=== PATIENT | male | born 1955 | race Caucasian/White ===

== ENCOUNTER → 2017-08-12 | Outpatient (REF) | payer OTHER ==
[2017-08-12 20:12] LABS: APPEARANCE, URINE CLEAR (CLEAR); BACTERIA, URINE AUTO NEGATIVE (NEGATIVE); BILIRUBIN, URINE AUTO NEGATIVE (NEGATIVE); BLOOD, URINE BLOOD NEGATIVE (NEGATIVE); COLOR, URINE YELLOW (YELLOW); GLUCOSE, URINE (UA) AUTO NEGATIVE (NEGATIVE); KETONE, URINE AUTO NEGATIVE (NEGATIVE); LEUKOCYTE ESTERASE, URINE AUTO NEGATIVE (NEGATIVE); NITRITE, URINE AUTO NEGATIVE (NEGATIVE); PROTEIN, URINE AUTO NEGATIVE (NEGATIVE); RBC, URINE AUTO 0 /HPF (0-3); SPECIFIC GRAVITY URINE AUTO 1.009 (1.002-1.035); SQUAMOUS EPITHELIAL CELL UR AU 0 /HPF (0-6); UROBILINOGEN, URINE AUTO 0.2 mg/dL (0.0-2.0); WBC, URINE AUTO 0 /HPF (0-3)
== END ==
LOC: M SMT 17:12
DX: N40.0 Benign prostatic hyperplasia without lower urinary tract symptoms (principal)

== ENCOUNTER 2018-07-06 05:38 | Day surgery (SDC) | payer BC, OTHER ==
[~2018-07-06] VITALS: Ht 170.2 cm; Wt 122.0 kg
[~2018-07-06 05:38] MED LIST: ALRE0.5S OU; ASPI81TA85 PO; ATOR1TAB19 PO; CELE1CAP9 PO; CETI10TA PO; FLOM0.4C39 PO; FLUTISP; HYDR12CA PO; POLYSOL OS
[2018-07-06] MEDS ORDERED: LR 1,000 ML IV ONE (06:00)
[2018-07-06] MEDS ORDERED: fentaNYL 100 MCG/2 ML INJECTION (J3010) As Ordered ONE (06:34)
[2018-07-06] MEDS ORDERED: MIDAZOLAM INJ 2 MG/2 ML VIAL (J2250) As Ordered ONE ×2 (06:34→08:22)
[2018-07-06] MEDS ORDERED: ceFAZolin 1GM INJ (J0690 PER 500MG) As Ordered ONE (07:13)
[2018-07-06] MEDS ORDERED: MIDAZOLAM INJ 2 MG/2 ML VIAL (J2250) IV ONE (08:00)
[2018-07-06] MEDS ORDERED: fentaNYL 100 MCG/2 ML INJECTION (J3010) IV ONE (08:00)
[2018-07-06] MEDS ORDERED: PROPOFOL 200 MG/20 ML VIAL As Ordered ONE (08:22)
[2018-07-06] MEDS ORDERED: ROCURONIUM BROMIDE 50 MG/5 ML VIAL As Ordered ONE ×2 (08:22→08:23)
[2018-07-06] MEDS ORDERED: fentaNYL 250 MCG/5 ML INJECTION (J3010) As Ordered ONE (08:22)
[2018-07-06] MEDS ORDERED: LIDOCAINE 2% INJ 100 MG/5 ML SDV (FOR ANES.) As Ordered ONE (08:22)
[2018-07-06] MEDS ORDERED: METOCLOPRAMIDE INJ 10MG/2ML VIAL (J2765) As Ordered ONE (08:23)
[2018-07-06] MEDS ORDERED: dexameTHASONE 4 MG/ML 1ML VIAL (J1100) As Ordered ONE (08:23)
[2018-07-06] MEDS ORDERED: NEOSTIGMINE 10 MG/10 ML VIAL (J2710) As Ordered ONE (08:23)
[2018-07-06] MEDS ORDERED: GLYCOPYRROLATE INJ 0.2 MG/ML 2 ML VIAL As Ordered ONE (08:23)
[2018-07-06] MEDS ORDERED: ONDANSETRON 4MG/2ML VIAL (J2405) As Ordered ONE (08:23)
[2018-07-06] MEDS ORDERED: KETOROLAC 60 MG/2 ML VIAL (J1885) As Ordered ONE (08:23)
[2018-07-06] MEDS ORDERED: ePHEDrine SULFATE 25 MG/5 ML(5MG/ML) SYRINGE As Ordered ONE (08:34)
[2018-07-06] MEDS ORDERED: fentaNYL 100 MCG/2 ML INJECTION (J3010) IV PRN (12:15)
[2018-07-06] MEDS ORDERED: oxyCODONE 5MG TAB PO PRN ×2 (12:15)
[2018-07-06] MEDS ORDERED: LR 1,000 ML IV SCH (12:15)
[2018-07-06] MEDS ORDERED: HYDROMORPHONE HCL 0.5 MG/ 0.5 ML SYRINGE (J1170 PER 1) IV PRN (12:15)
--- NOTE | 2018-07-06 12:19 | REP ---
Right ankle: Four views limited study intra op. History: Right leg Achilles tendonitis. 24 seconds of fluoroscopy time is reported. Findings: A sequence of four last image hold fluoroscopically obtained spot radiographs of the right heel document Achilles tendon surgery. Electronically Signed by Torres Jackson MD 07/06/2018 06:52 P
[2018-07-06 12:25] VITALS: BP 122/56
[2018-07-06] MEDS ORDERED: ACETAMINOPHEN 500 MG TAB PO SCH (22:00)
[2018-07-06] MEDS ORDERED: IBUPROFEN 600 MG TAB PO SCH (22:00)
[2018-07-07] MEDS ORDERED: ASPIRIN 81 MG ENTERIC TAB PO SCH (09:00)
--- NOTE | 2018-07-12 15:57 | RO ---
DATE OF PROCEDURE: 07/06/2018 PREPROCEDURE DIAGNOSIS: Right insertional Achilles tendinosis. POSTPROCEDURE DIAGNOSIS: Right insertional Achilles tendinosis. PROCEDURE: 1. Right Achilles debridement and excision of Liz's deformity. 2. Right Achilles secondary repair. 3. Right flexor halluces longus tendon transfer to the calcaneal tuberosity. SURGEON: Margie Lira MD LPN RN: KIRK Parrish ANESTHESIA: General endotracheal anesthesia with popliteal nerve block. ESTIMATED BLOOD LOSS: 25 mL. COMPLICATIONS: None. CONDITION: Stable to recovery. IMPLANTS: Arthrex Achilles SpeedBridge and single 6.25 mm x 15 mm PEEK Bio-Tenodesis screw. INDICATIONS: Valentino Treviño is a pleasant 63-year-old male who has long standing insertional Achilles tendinosis who has failed extensive nonoperative modalities including NSAIDs, physical therapy and bracing. The risks and benefits of surgery were discussed with the patient in detail and patient elected to proceed with surgical management. Informed consent was obtained in the office. The patient understands the risks include but are not limited to infection, damage to nerves or the blood vessels, tendon rupture, need for additional procedure, continued pain and stiffness, blood clot including deep venous thrombosis (DVT), or pulmonary embolism (PE). DESCRIPTION OF PROCEDURE: The patient was met in the preoperative holding area where the right lower extremity was marked as the correct operative site. He was then taken to the post anesthesia care unit (PACU) where she underwent a popliteal nerve block by the anesthesia team. Following this, the patient was taken to the operating room where he underwent general anesthesia without difficulty. A Lawton catheter was placed and it was removed at the end of the case. The patient was placed into the prone position and all the bony prominences were well padded in addition the patient's neck and shoulders being well supported. A sterile tourniquet was placed on the right upper thigh. The right lower extremity underwent a Chlorhexidine scrub. It was then prepped and draped in a normal sterile fashion. The patient received antibiotics within 60 minutes prior to incision. An official time-out was held where the correct patient, operative procedure and operative site were confirmed. Appropriate images were displayed in the operating room. An Esmarch was used to exsanguinate the leg and the tourniquet was inflated to 250 mmHg. An incision was marked out straight midline over the Achilles tendon. It was incised with a #15 blade. Careful exposure to the level of the peritenon was performed. Care was taken to ensure that the sural nerve was not adherent to the Achilles tendon either posteriorly or laterally. Following this, the peritenon was excised. It was tagged for later closure. The tendon was exposed circumferentially. A midline incision was then made from about 3 cm proximal to the level of the insertion down to the distal aspect of the insertion itself. The tendon was raised off the posterior calcaneal tuberosity. There was found to be significant tendinosis throughout the insertional region and a fairly large area of calcification in the medial aspect of the tendon. Tendon was debrided and the calcification was removed using a series of fresh #15 blades. It was necessary to debride over 50% of the Achilles tendon for adequate debridement and there was a small defect in the medial aspect of the tendon where the calcification was previously so decision was made to proceed with the flexor halluces longus transfer to the calcaneus. The retrocalcaneal bursal tissue was debrided and the superior calcaneal tuberosity was exposed. The posterior fascia of the flexor hallucis longus (FHL) muscle was easily identified. This was excised, exposing the FHL muscle. Using long Metzenbaum scissors, the muscle was then followed down to the level of the tendon with care to dissect only on the lateral border of the tendon to avoid the medial nerve vascular structures. When a significant portion of the tendon was exposed, the tendon was excised in the medial to lateral direction with the foot and toe in plantar flexion to maximize tendon length. After excision, there was found to be an adequate portion of the tendon for transfer. Of note, the tendon initially measured 8 mm and had some areas of mild tendinosis. This was debrided down to approximately 6 mm. A Whip Stitch was then performed using a #2 FiberWire with care to tubulize the distal portion of FHL tendon. At this point, attention was turned back to debridement of the calcaneal tuberosity. There was a medium sized enthesophyte present on the posterior aspect of the tuberosity. This was excised using a small osteotome. Next, the Liz's bony resection was performed using a #38 blade saw. The level of resection was confirmed on the lateral C-Arm. The superior aspect of the calcaneus was smoothed down with a power rasp in both medial, lateral, superior and posterior directions. At this point, using a marker, the insertion point for the FHL and the anticipated position of the Achilles SpeedBridge was marked out. Beath pin was inserted anterior to the Achilles insertion aiming to the level of the midfoot following this ryan. Its trajectory was confirmed on a lateral C-Arm view. Following this, a 6.5 reamer was used over the pin to about a 25 to 30 mm depth. The tendon was then passed through the tunnel. Appropriate tension was set with the foot in neutral dorsiflexion and a 6.25 x 15 mm Bio-Tenodesis PEEK screw was selected and placed in the tunnel. This had satisfactory bite and the tendon had good tension following screw placement. Next, attention was turned to the Achilles SpeedBridge for reattachment of the Achilles tendon insertion. Four holes were drilled proximally and distally with care to avoid the FHL transfer. The FiberTapes were placed proximally and then brought through each medial and lateral limb of the tendon. The limbs were then crossed in the standard fashion and secured distally with two SwiveLocks. This was performed without complication. One #2 FiberWire on the medial aspect of the limb was used to further reinforce the medial tendon insertion as this was the side that had the small defect from the area of calcification. The tendon was further secured with #0 Vicryl. Appropriate tension of the Achilles tendon was maintained. The midline split was closed with #0 Vicryl in a running fashion. The peritenon was closed using #3-0 Vicryl in an interrupted fashion. Skin was closed using #3-0 nylon. Of note, tourniquet was let down prior to skin and peritenon closure and hemostasis was maintained. Following skin closure, a sterile dressing was applied and a splint was placed in slight plantar flexion. Patient was then transferred to the hospital stretcher and extubated without any issue. Counts were correct at the end of the case. There were no complications. PLAN: The patient will be nonweightbearing in the right lower extremity for 6 weeks. I will see him back in one week for a wound check and splint change. He will be on aspirin 81 mg by mouth twice a day for DVT prophylaxis.
== END 2018-07-06 13:46 | disposition home or self-care (01) ==
LOC: M SDC 05:38
PROVIDERS: ATTEND Orthopaedic Surgery
DX: M76.61 Achilles tendinitis, right leg (principal); M92.61 Juvenile osteochondrosis of tarsus, right ankle; I10 Essential (primary) hypertension; J30.9 Allergic rhinitis, unspecified; G47.33 Obstructive sleep apnea (adult) (pediatric); R73.01 Impaired fasting glucose; M54.2 Cervicalgia; N40.0 Benign prostatic hyperplasia without lower urinary tract symptoms; M12.9 Arthropathy, unspecified; R06.83 Snoring; Z79.899 Other long term (current) drug therapy; Z79.82 Long term (current) use of aspirin; Z87.442 Personal history of urinary calculi
CPT/HCPCS: 27654; 27691; 28118; 64445; 73610; 88304; 97116; 97530; C1713; J0690; J1100; J1885; J2250; J2405; J2710; J2765; J3010

== ENCOUNTER → 2020-02-02 | Outpatient (CLI) | payer BC, OTHER ==
[~2020-02-02] MED LIST changes: -ASPI81TA85 PO; +ASPI81TA86 PO; +LISI10TA4 PO; +PERC5TAB12 PO; +XARE10TA PO
== END ==
LOC: M LABSMTC 10:16
PROVIDERS: ATTEND Anesthesiology
DX: Z11.59 Encounter for screening for other viral diseases (principal)

== ENCOUNTER → 2020-02-02 | Outpatient (CLI) | payer MEDICARE, BC, OTHER ==
[2020-02-02 18:01] LABS: HEMATOCRIT 42.7 % (42.0-52.0); HEMOGLOBIN 13.9 g/dl (13.5-17.5); MEAN CORPUSCULAR HEMOGLOBIN 30.2 pg (27.0-33.0); MEAN CORPUSCULAR HGB CONC 32.6 g/dl (32.0-36.5); MEAN CORPUSCULAR VOLUME 92.6 fl (80.0-96.0); PLATELET COUNT, AUTOMATED 247 10^3/uL (150-450); RED BLOOD COUNT 4.61 10^6/uL (4.30-6.10); WHITE BLOOD COUNT 8.8 10^3/uL (4.0-10.0)
[2020-02-02 18:21] LABS: ALBUMIN 3.9 GM/DL (3.2-5.2); ALT/SGPT 24 U/L (12-78); BILIRUBIN,TOTAL 0.4 MG/DL (0.2-1.0); BLOOD UREA NITROGEN 15 MG/DL (7-18); CALCIUM LEVEL 9.4 MG/DL (8.8-10.2); CARBON DIOXIDE LEVEL 29 MEQ/L (21-32); CHLORIDE LEVEL 103 MEQ/L (98-107); CREATININE FOR GFR 0.89 MG/DL (0.70-1.30); GLOMERULAR FILTRATION RATE > 60.0 (>49); GLUCOSE, FASTING 91 MG/DL (70-100); POTASSIUM SERUM 4.3 MEQ/L (3.5-5.1); SODIUM LEVEL 138 MEQ/L (136-145); TOTAL PROTEIN 7.3 GM/DL (6.4-8.2)
[2020-02-02 18:22] LABS: PROTHROMBIN TIME 13.4 SECONDS (11.8-14.0)
[2020-02-02 18:31] LABS: ERYTHROCYTE SEDIMENTATION RATE 12 mm/hr (0-20)
--- NOTE | 2020-02-15 14:41 | ECGEPIP ---
[facility] Test Date: 2020-02-02 Pat Name: SERENE VELASQUEZ Department: Room: - Gender: Male [employer] Hospitalist: RF : [id number] Requested By: Gayathri Morales Order Number: [id number] Reading MD: Lorenzo Mendoza Measurements Intervals [place] Rate: 49 P: 4 NV: 154 QRS: 50 QRSD: 106 T: 51 QT: 455 QTc: 412 Interpretive Statements SINUS BRADYCARDIA WITH SINUS ARRHYTHMIA OTHERWISE NS SEE SCANNED DOWNTIME REPORT
--- NOTE | 2020-02-27 12:42 | REP ---
CHEST X-RAY: 02/02/20 CLINICAL: Preoperative assessment TECHNIQUE: PA and lateral COMPARISON: 09/24/2015 FINDINGS: Mediastinum and cardiac silhouette are within normal limits and stable. Lung sadler are clear. No consolidation, effusion or pneumothorax. Skeletal structures are intact. IMPRESSION: No acute cardiopulmonary process of focal consolidation. MTDD
== END ==
LOC: M LAB 16:01
PROVIDERS: ATTEND Family Medicine
DX: Z01.818 Encounter for other preprocedural examination (principal); M17.12 Unilateral primary osteoarthritis, left knee; Z20.828 Contact with and (suspected) exposure to other viral communicable diseases
CPT/HCPCS: 36415; 71046; 80053; 85027; 85610; 85652; 93005; C9803; U0003

== ENCOUNTER 2020-02-07 07:33 | Inpatient (IN) | payer MEDICARE, BC, OTHER ==
[~2020-02-07] VITALS: Ht 170.2 cm; Wt 114.9 kg
[2020-02-07] VITALS (7 sets, daily range): BP systolic 102–139; BP diastolic 61–75
[~2020-02-07 07:33] MED LIST changes: -LISI10TA4 PO; +LR 1,000 ML IV ONE; -PERC5TAB12 PO; -XARE10TA PO; +ceFAZolin SOD 1 GM in D5W MINI-BAG PLUS 50 ML IV ONE; +ceFAZolin SOD 2 GM in IV 1 EA IV ONE
[2020-02-07] MEDS ORDERED: LISI10TA4 PO (07:48)
[2020-02-07] MEDS ORDERED: ceFAZolin 2 GM/D5W 50 ML IV BAG (J0690 PER 500MG) As Ordered ONE (08:01)
[2020-02-07] MEDS ORDERED: ceFAZolin 1GM VIAL (J0690 PER 500MG) As Ordered ONE ×2 (08:01→09:02)
[2020-02-07] MEDS ORDERED: propofoL 200 MG/20 ML VIAL As Ordered ONE (08:57)
[2020-02-07] MEDS ORDERED: LIDOCAINE 2% 100MG/5ML SDV (FOR ANES.) As Ordered ONE (08:57)
[2020-02-07] MEDS ORDERED: fentaNYL 100 MCG/2 ML INJECTION (J3010) As Ordered ONE (08:59)
[2020-02-07] MEDS ORDERED: MIDAZOLAM INJ 2MG/2ML VIAL (J2250 PER 1MG) As Ordered ONE ×2 (08:59→10:36)
[2020-02-07] MEDS ORDERED: TRANEXAMIC ACID 100 MG/ML 10ML VIAL As Ordered ONE (09:01)
[2020-02-07] MEDS ORDERED: BUPIVACAINE LIPOSOME/PF 1.3% 20ML VIAL (13.3MG/ML)(EXPAREL)(C9290 PER1MG) As Ordered ONE (09:02)
[2020-02-07] MEDS ORDERED: EPINEPHrine INJ 1 MG/ML 1ML AMP As Ordered ONE (09:02)
[2020-02-07] MEDS: fentaNYL 100 MCG/2 ML INJECTION (J3010) IV PRN ×2 (09:18→09:20)
[2020-02-07] MEDS: MIDAZOLAM INJ 2MG/2ML VIAL (J2250 PER 1MG) IV PRN ×2 (09:18→09:19)
[2020-02-07] MEDS ORDERED: ROPIvacaine 0.5% 30ML INJECTION (J2795 PER 1MG) ONE (10:29)
[2020-02-07] MEDS ORDERED: dexameTHASONE 10MG/1ML VIAL PRES.FREE (J1100 PER 1MG) ONE (10:29)
[2020-02-07] MEDS ORDERED: LIDOCAINE 1% MDV 20ML VIAL ONE (10:29)
[2020-02-07] MEDS ORDERED: LR 1,000 ML IV SCH ×2 (12:30→12:45)
[2020-02-07] MEDS ORDERED: fentaNYL 100 MCG/2 ML INJECTION (J3010) IV PRN (12:30)
[2020-02-07] MEDS ORDERED: oxyCODONE 5MG TAB PO PRN (12:30)
[2020-02-07] MEDS ORDERED: ONDANSETRON 4MG/2ML VIAL IV PRN ×2 (12:30→12:45)
[2020-02-07] MEDS ORDERED: MORPHINE 4 MG/ML 1ML VIAL/SYRINGE (J2270) IV PRN (12:45)
[2020-02-07] MEDS ORDERED: MORPHINE 2 MG/ML 1ML VIAL (J2270) IV PRN (12:45)
[2020-02-07] MEDS ORDERED: ACETAMINOPHEN TAB 650MG DOSE (2X325MG) PO PRN (12:45)
--- NOTE | 2020-02-07 12:47 | REPVR ---
PROCEDURE INFORMATION: Exam: XR Left Knee Exam date and time: 02/07/2020 12:36 PM Age: 64 years old Clinical indication: Screening exam; Post op; Prior surgery; Surgery date: Post-operative (0-2 days); Additional info: Post op in pacu TECHNIQUE: Imaging protocol: XR Left knee. Views: 1 or 2 views. COMPARISON: No relevant prior studies available. FINDINGS: Bones/joints: Left TKA. Hardware appears intact. Superior patellar enthesophyte. No acute fracture. No dislocation. Soft tissues: Postsurgical changes in the soft tissues. Ventral skin rowena. IMPRESSION: Intact left knee arthroplasty. Electronically signed by: Margarita Garrido On 02/07/2020 12:47:13 PM
[2020-02-07] MEDS: PERCOCET 5MG/325MG TAB PO PRN ×3 (14:34→22:32)
--- NOTE | 2020-02-07 14:43 | CR.PDOC ---
General Date of Consultation: Feb 07, 2020 Consultation Chief complaint: Who presented to [facility] for an elective left knee arthroplasty Hospitalist service consulted for medical management History of present illness: Patient is a 64 year old male with a PMHx of HTN, DLP, NATHALIE on CPAP, Allergic rhinitis, BPH who presented to the [facility] for an elective total left knee arthroplasty with orthopedic surgery. Patient has received outpatient medical optimization from their PCP, Gayathri Walton. Patient is seen post-operatively and he denies any CP, SOB, palpitations, cough, abdominal pain, N/V, constipation, diarrhea or urinary discomfort. He denies any fevers / chills recently. He denies any changes in his weight, but does reports an intentional weight loss of 20 lbs / 4 months. He was advised by orthopedic surgery to loss weight prior to the surgery. Past Medical History: HTN, DLP, NATHALIE on CPAP, Allergic rhinitis, BPH Past Surgical History: Kidney stones with cystoscopy / lithotripsy (03/2010) Skin cancer removal of R forearm (2011) Colonoscopy (12/2009) Tonsillectomy Vasectomy Diskectomy and fusion C5 to C7 (2016) Bilateral carpal tunnel release Achilles tendon repair 07/02 calcification (2017) Left knee arthroscopy (03/2019) Allergies: See below Medications: See below Family History: - Sister with uterine cancer Social History: - Denies the use of tobacco or illicit drugs; Social alcohol use - Denies recent travel or sick contacts - Lives with - Occupation; 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 [employer] Review of Systems: 10 point review of systems complete, all negative otherwise stated in HPI Physical exam: - Vitals: BP [112/57], HR [57], RR [18], Sat [95%RA], Temp [97.0F] - General: Lying in bed, No acute distress, Speaking in full sentences, AAOx3 - HEENT: NC, AT, PERRLA - CVS: RRR, +S1S2 - Lungs: Fair air entry bilaterally, No appreciable wheezing / rales / rhonchi - Abdomen: Soft, Non-distended, Non-tender - Extremities: No lower extremity edema, No calf tenderness - Neuro: No focal motor or sensory deficit - Skin: Left knee in dressing Assessment and Plan: Elective Total Left knee arthroplasty (POD#0) - Patient presented to [facility] for an elective procedure with orthopedic surgery - Medical optimization was completed as an outpatient by their PCP, Dr. Gayathri Walton - Pain control, anticoagulation and physical therapy at the direction of primary team HTN - c/w HCTZ with holding parameters - Lisinopril on hold until verified by pharmacy DLP - c/w Statin NATHALIE on CPAP - May use own CPAP device while inpatient Allergic rhinitis - c/w Cetirizine BPH - c/w Tamsulosin DVT prophylaxis - c/w full anticoagulation as per orthopedic team Vital Signs/I&O Vital Signs Date Time Temp Pulse Resp B/P (MAP) Pulse Ox O2 Delivery O2 Flow Rate FiO2 02/07/20 14:34 16 02/07/20 12:44 97 57 112/57 (75) 95 Room Air 02/07/20 10:12 2 Allergies Coded Allergies: No Known Allergies (Unverified , 02/07/20) Home Medications Scheduled Aspirin (Aspir 81) 81 Mg Tab, 81 MG PO DAILY, #30 (Reported) Atorvastatin Calcium (Atorvastatin Calcium) 10 Mg Tab, 10 MG PO DAILY, (Reported) Celecoxib (Celecoxib) 200 Mg Cap, 200 MG PO DAILY, (Reported) Cetirizine HCl (Cetirizine HCl) 10 Mg Tab, 10 MG PO DAILY, (Reported) Fluticasone Propionate (Fluticasone Propionate) 50 Mcg/Act Spr, 2 SPRAY NA DAILY, (Reported) Hydrochlorothiazide (Hydrochlorothiazide) 12.5 Mg Cap, 12.5 MG PO DAILY, (Reported) Lisinopril (Lisinopril) 10 Mg Tablet, 10 MG PO DAILY, (Reported) Loteprednol Etabonate (Alrex) 0.2 % Caro, 1 DROP OU DAILY, (Reported) Tamsulosin HCl (Flomax) 0.4 Mg Cap, 0.4 MG PO DAILY, (Reported) GRANT POWERS MD Feb 07, 2020 14:43
[2020-02-07] MEDS: CETIRIZINE (ZyrTEC) 10 MG TAB PO SCH (17:50)
[2020-02-07] MEDS: ceFAZolin SOD 2 GM in IV 1 EA IV SCH (18:39)
[2020-02-07] MEDS ORDERED: TAMSULOSIN 0.4 MG CAP PO SCH (21:00)
[2020-02-07] MEDS ORDERED: ATORVASTATIN 10 MG TAB PO SCH (21:00)
[2020-02-08 02:00] VITALS: BP 112/62
[2020-02-08] MEDS: ceFAZolin SOD 2 GM in IV 1 EA IV SCH (02:34)
[2020-02-08 06:00] VITALS: BP 111/61
[2020-02-08] MEDS ORDERED: XARE10TA PO (06:27)
[2020-02-08] MEDS ORDERED: PERC5TAB12 PO (06:27)
[2020-02-08 06:37] LABS: HEMATOCRIT 35.5 % (42.0-52.0); HEMOGLOBIN 12.1 g/dl (13.5-17.5); MEAN CORPUSCULAR HEMOGLOBIN 31.1 pg (27.0-33.0); MEAN CORPUSCULAR HGB CONC 34.1 g/dl (32.0-36.5); MEAN CORPUSCULAR VOLUME 91.3 fl (80.0-96.0); PLATELET COUNT, AUTOMATED 225 10^3/uL (150-450); RED BLOOD COUNT 3.89 10^6/uL (4.30-6.10); WHITE BLOOD COUNT 16.6 10^3/uL (4.0-10.0)
[2020-02-08] MEDS: PERCOCET 5MG/325MG TAB PO PRN (06:39)
[2020-02-08 07:12] LABS: BLOOD UREA NITROGEN 16 MG/DL (7-18); CALCIUM LEVEL 9.2 MG/DL (8.8-10.2); CARBON DIOXIDE LEVEL 26 MEQ/L (21-32); CHLORIDE LEVEL 102 MEQ/L (98-107); CREATININE FOR GFR 0.85 MG/DL (0.70-1.30); GLOMERULAR FILTRATION RATE > 60.0 (>49); GLUCOSE, FASTING 130 MG/DL (70-100); MAGNESIUM LEVEL 2.1 MG/DL (1.8-2.4); POTASSIUM SERUM 4.3 MEQ/L (3.5-5.1); SODIUM LEVEL 134 MEQ/L (136-145)
[2020-02-08] MEDS: CETIRIZINE (ZyrTEC) 10 MG TAB PO SCH (08:25)
[2020-02-08] MEDS ORDERED: hydroCHLOROthiazide 12.5 MG CAPSULE PO SCH (09:00)
[2020-02-08] MEDS ORDERED: MOM 30ML SUSPENSION UDC PO SCH (09:00)
[2020-02-08] MEDS ORDERED: FLUBLOK(EGG FREE)(QUAD)INFLUENZA VACC 0.5ML SYRINGE 18YRS & OLDER IM SCH (09:00)
[2020-02-08] MEDS ORDERED: MIRALAX *UNIT DOSE* 17GM PACKET PO SCH (09:00)
[2020-02-08] MEDS ORDERED: FLUTICASONE PROP 0.05% NASAL SPRAY 16 GM (FLONASE) SCH (09:00)
[2020-02-08 10:00] VITALS: BP 111/59
--- NOTE | 2020-02-08 14:40 | IPNPDOC ---
Text Note Date of Service The patient was seen on 02/08/20. NOTE Subjective: Patient is a 64 year old male with a PMHx of HTN, DLP, NATHALIE on CPAP, Allergic rhinitis, BPH who presented to the [facility] for an elective total left knee arthroplasty with orthopedic surgery. Patient has received outpatient medical optimization from their PCP, Gayathri Walton. Hospitalist service was consulted for medical management. Patient was seen and examined at the bedside. Currently he denies any N/V, abdominal pain, C/D, no urinary discomfort. Patient has been ambulating to the bathroom and will be working with physical therapy today. Objective: Vitals (See below) General: Lying in bed, appears comfortable, AAOx3 HEENT: NC, AT CVS: RRR, +S1S2 Lungs: Fair air entry b/l, -w/r/r Abdomen: Soft, ND, NT Extremities: - Edema, - Calf tenderness Assessment and plan: Elective Total Left knee arthroplasty (POD#1) - Patient presented to [facility] for an elective procedure with orthopedic surgery - Medical optimization was completed as an outpatient by their PCP, Dr. Gayathri Walton - Pain control, anticoagulation and physical therapy at the direction of primary team - Will be working with physical therapy today; anticipate DC later today HTN - c/w HCTZ with holding parameters - Lisinopril on hold today DLP - c/w Statin NATHALIE on CPAP - May use own CPAP device while inpatient Allergic rhinitis - c/w Cetirizine BPH - c/w Tamsulosin DVT prophylaxis - c/w full anticoagulation as per orthopedic team Disposition: - Anticipate DC within 24 hours VS,Josiane, I+O VS, Ethanbone, I+O Laboratory Tests 02/08/20 06:25 Vital Signs Date Time Temp Pulse Resp B/P (MAP) Pulse Ox O2 Delivery O2 Flow Rate FiO2 02/08/20 10:00 98.2 60 17 111/59 (76) 97 Room Air 02/07/20 10:12 2 I&O- Last 24 Hours up to 6 AM 02/08/20 06:00 Intake Total 4010 ml Output Total 625 ml Balance 3385 ml GRANT POWERS MD Feb 08, 2020 14:40
[2020-02-08] MEDS ORDERED: RIVAROXABAN 10 MG TAB (XARELTO) PO SCH (18:00)
--- NOTE | 2020-02-09 14:05 | IPN ---
DATE: 02/07/2020 SUBJECTIVE: Patient seen and examined. He wishes to go ahead with a left knee arthroplasty. He understands the nature of this, the risks of bleeding, infection, damage to nerves/vessels, persistent pain, wear, loosening, blood clots, medical problems, , among others. Pre-op clearance was obtained. VALENTINA
--- NOTE | 2020-02-22 16:42 | RO ---
DATE OF OPERATION: 02/07/2020 PREOPERATIVE DIAGNOSIS: Left knee osteoarthritis. POSTOPERATIVE DIAGNOSIS: Left knee osteoarthritis. PROCEDURE: Left total knee arthroplasty using an Attune rotating platform size 6 femur, size 7 tibial tray, cruciate retaining 10 polyethylene, 38 patella button. SURGEON: Zhang Long MD DENTAL TECH: KIRK Andersen ANESTHESIA: Spinal. ESTIMATED BLOOD LOSS: 50 ml COMPLICATIONS: None. INDICATIONS: 64-year-old has had gradually worsening left knee pain, wish to go ahead with the surgical treatment. He had severe arthritis. PROCEDURE: The patient was taken to the operating room, placed in supine position after spinal anesthesia was induced. The left lower extremity was prepped and draped in the usual sterile fashion. Time-out was performed. Tourniquet was inflated. A longitudinal incision was made over the anterior aspect of the knee. Sharp dissection was carried down through subcutaneous tissue. A medial parapatellar arthrotomy was performed per routine. Controlled hemostasis with the cautery. I everted the patella, flexed the knee up, removed some osteophytes, use the canal initiating reamer, followed by the intramedullary guide set at 5 degree valgus, 9 mm cut. This was pinned in place and a distal femoral cut was made protecting soft tissues. I then sized the femur initially to be a 7 and the drill holes were placed in the end of the femur and the external rotation positioned and the cutting block was secured. Remaining cuts were made. I then prepared the tibia with the posterior retractor being placed protecting the PCL and placed the tibia alignment guide and the appropriate amount of valgus and posterior slope, ended up cutting 4 off the low side which was 10 off the high side. This was an appropriate cut. The soft tissue balance seemed to be appropriate in extension. I then sized with the spacer blocks and determined that it was tight in flexion and appropriate in extension with a size 10, so I elected to downsize the femur. The size 6 cutting block was then re-secured to the femur, referencing off the anterior cut and the pinholes were placed in the same previous holes and the block was secured. The remaining cuts were made removing a little more bone posteriorly and off the posterior chamfer cuts. I then used the spacer block and found that a size 10 was excellent alignment and balance in flexion and extension. The sulcus cut was then prepared with the guide. The tibia was prepared with the drill and broach and the trial components were placed with the 10 polyethylene and excellent fit was noted of the components and excellent balance was noted in flexion and extension. Excellent alignment was noted. The patella was then freehand cut removing about 8 mm of bone. Sized to be a 38. The drill holes were placed in the patella. A trial was place and this tracked a little laterally, so I did do a lateral release at this point. This allowed the patella to track quite nicely. I made the drill holes in the end of the femur. The visual merchandising assistant prepared the bone cement in the modern technique on the back table. I irrigated copiously, placed the Exparel in the deep tissues and dried the surfaces, cemented on the components, removed all excess bone cement, had placed the polyethylene, brought the knee under extension, cemented on the patella, held it in place with a clamp, removing excess bone cement. I then copiously irrigated, placed a TXA in the deep tissues and then began closure with the deep layer with 1-Vicryl suture in interrupted fashion followed by running STRATAFIX. Once the cement was hardened, we removed the patella clamp and finished the closure. Deep irrigation was performed. Watertight closure was obtained. I put the knee through range of motion; the knee had excellent stability. There is no clicking or catching. I neglected to mention a step after we made the tibia cut that the soft tissue was removed from either side of the knee with a occupational therapy specialist on each side and some osteophytes posteriorly. I then irrigated the subcutaneous. Once the cement hardened, I deflated the tourniquet and closed with subcutaneous 2-0 Vicryl, the skin with rowena, the deep layer had been closed with running STRATAFIX after the 1-Vicryl. Sterile dressing was applied. He was taken to the recovery room stable condition. There were no known complications. The plan will be routine postop. The visual merchandising assistant was instrumental in holding retractors and assisting in mixing the bone cement and assisting in wound closure. VALENTINA
--- NOTE | 2020-02-27 08:44 | DSES ---
DATE OF ADMISSION: 02/07/2020. DATE OF DISCHARGE: 02/08/2020. ATTENDING PHYSICIAN: hZang Long M.D. ADMITTING DIAGNOSIS: Osteoarthritis left knee. OTHER DIAGNOSES: Hypertension, elevated lipids, sleep apnea, allergic rhinitis, benign prostatic hypertrophy. DISCHARGE DIAGNOSIS: Osteoarthritis left knee; status post left total knee arthroplasty. OPERATION PERFORMED: Left total knee arthroplasty. HISTORY: This is a 64-year-old male patient with progressively worsening left knee pain and stiffness. He failed to improve with conservative management. He was admitted for elective knee replacement on the left side. HOSPITAL COURSE: Patient was admitted on the day of surgery and underwent a left total knee arthroplasty, which was uneventful. He did well in the postoperative period and his hospital course was without complications. He was up with physical therapy per their protocol and his pain was controlled. On day of discharge, he was weightbearing as tolerated on his left lower extremity. He will use MARIUM stockings for 30 days postoperatively for DVT prophylaxis. He will also use Xarelto 10 mg per the protocol for DVT prophylaxis. He will resume his preoperative medications and diet. He will use oral pain medications for pain control. He was given instructions to include but not limited to wound monitoring and activity limitations. He will follow-up in our office in 10-14 days for surgical follow-up. Please refer to the medical record for further details. VALENTINA
== END 2020-02-08 12:00 | disposition home or self-care (01) | DRG 470 ==
LOC: M OR 07:33 → M MS5PR 13:05
PROVIDERS: ADMIT Orthopaedic Surgery; ATTEND Orthopaedic Surgery
PROC: 0SRW0J9 Replacement of Left Knee Joint, Tibial Surface with Synthetic Substitute, Cemented, Open Approach (ICD-10-PCS; principal; 2020-02-07 09:20)
DX: M17.12 Unilateral primary osteoarthritis, left knee (principal); I10 Essential (primary) hypertension; G47.33 Obstructive sleep apnea (adult) (pediatric); N40.0 Benign prostatic hyperplasia without lower urinary tract symptoms; Z79.899 Other long term (current) drug therapy; Z79.82 Long term (current) use of aspirin

== ENCOUNTER → 2020-08-19 | Outpatient (REF) | payer MEDICARE, BC, OTHER ==
[~2020-08-19] MED LIST changes: +LISI10TA22 PO; -LR 1,000 ML IV ONE; +PERC5TAB12 PO; +XARE10TA PO; -ceFAZolin SOD 1 GM in D5W MINI-BAG PLUS 50 ML IV ONE; -ceFAZolin SOD 2 GM in IV 1 EA IV ONE
[2020-08-19 18:36] LABS: APPEARANCE, URINE CLEAR (CLEAR); BACTERIA, URINE AUTO NEGATIVE (NEGATIVE); BILIRUBIN, URINE AUTO NEGATIVE (NEGATIVE); BLOOD, URINE BLOOD NEGATIVE (NEGATIVE); COLOR, URINE YELLOW (YELLOW); GLUCOSE, URINE (UA) AUTO NEGATIVE (NEGATIVE); KETONE, URINE AUTO NEGATIVE (NEGATIVE); LEUKOCYTE ESTERASE, URINE AUTO NEGATIVE (NEGATIVE); MUCUS, URINE SMALL (NEGATIVE); NITRITE, URINE AUTO NEGATIVE (NEGATIVE); PROTEIN, URINE AUTO NEGATIVE (NEGATIVE); RBC, URINE AUTO 1 /HPF (0-3); SPECIFIC GRAVITY URINE AUTO 1.015 (1.002-1.035); SQUAMOUS EPITHELIAL CELL UR AU 0 /HPF (0-6); UROBILINOGEN, URINE AUTO 0.2 mg/dL (0.0-2.0); WBC, URINE AUTO 0 /HPF (0-3)
== END ==
LOC: M SMT 17:08
PROVIDERS: ATTEND Nurse Practitioner Family
DX: N40.0 Benign prostatic hyperplasia without lower urinary tract symptoms (principal)
CPT/HCPCS: 51798; 81001; 87086; G0463

== ENCOUNTER → 2020-09-02 | Outpatient (CLI) | payer SELFPAY | LOC: M LABSMTC 09:29 | PROVIDERS: ATTEND Pediatrics | DX: Z11.52 Encounter for screening for COVID-19 (principal) ==

== ENCOUNTER → 2021-03-05 | Outpatient (CLI) | payer MEDICARE, BC, OTHER ==
--- NOTE | 2021-03-05 12:24 | REP ---
INDICATION: PUNCTURE WOUND LEFT HAND, SPRAIN OF LEFT WRIST COMPARISON: None. TECHNIQUE: AP, lateral, bilateral oblique views left hand. FINDINGS: The osseous structures and joint spaces are intact and normal. There is no evidence for acute fracture or dislocation. Surrounding soft tissues are unremarkable. No subcutaneous emphysema or radiodense foreign body. IMPRESSION: No subcutaneous emphysema or foreign body. No acute fracture or dislocation. <Electronically signed by Ricci Julian > 03/05/21 [id number]
--- NOTE | 2021-03-05 12:25 | REP ---
INDICATION: PUNCTURE WOUND LEFT HAND, SPRAIN OF LEFT WRIST COMPARISON: None. TECHNIQUE: AP, lateral, bilateral oblique views left wrist. FINDINGS: The carpal bones, surrounding osseous structures, soft tissues, and joint spaces are normal. There is no evidence for acute fracture or dislocation. No subcutaneous emphysema or radiodense foreign body. IMPRESSION: Normal wrist series. No subcutaneous emphysema or foreign body. No acute fracture. <Electronically signed by Ricci Julian > 03/05/21 [id number]
== END ==
LOC: M WUC 11:56
PROVIDERS: ATTEND Physician Assistant
DX: S61.432A Puncture wound without foreign body of left hand, initial encounter (principal); S63.512A Sprain of carpal joint of left wrist, initial encounter; W18.30XA Fall on same level, unspecified, initial encounter; Y92.009 Unspecified place in unspecified non-institutional (private) residence as the place of occurrence of the external cause

== ENCOUNTER → 2021-06-26 | Outpatient (CLI) | payer MEDICARE, BC, OTHER ==
[~2021-06-26] MED LIST changes: +ACET650T61 PO; +ALEV220T22 PO; +ECOT81TA5 PO; +OXYB10TA23 PO
== END ==
LOC: M LABSMTC 10:20
PROVIDERS: ATTEND Anesthesiology
DX: Z01.818 Encounter for other preprocedural examination (principal); Z11.52 Encounter for screening for COVID-19

== ENCOUNTER 2021-07-01 07:11 | Day surgery (SDC) | payer MEDICARE, BC, OTHER ==
[~2021-07-01] VITALS: Ht 170.2 cm; Wt 118.4 kg
[~2021-07-01 07:11] MED LIST changes: +NS 1,000 ML IV ONE
[2021-07-01] MEDS ORDERED: propofoL 200 MG/20 ML VIAL As Ordered ONE (07:23)
[2021-07-01] MEDS ORDERED: LIDOCAINE 2% 100MG/5ML SDV (FOR ANES.) As Ordered ONE (07:23)
[2021-07-01 09:07] VITALS: BP 124/80
[2021-07-01] MEDS ORDERED: OXYMETAZOLINE 0.05% NASAL SPRAY (AFRIN) As Ordered ONE (13:54)
== END 2021-07-01 09:08 | disposition home or self-care (01) ==
LOC: M OPP 07:11
PROVIDERS: ATTEND Internal Medicine Gastroenterology
DX: Z12.11 Encounter for screening for malignant neoplasm of colon (principal); K57.30 Diverticulosis of large intestine without perforation or abscess without bleeding; K64.8 Other hemorrhoids; Z79.899 Other long term (current) drug therapy

== ENCOUNTER → 2022-10-20 | Outpatient (CLI) | payer MEDICARE, BC, OTHER ==
[~2022-10-20] MED LIST changes: +FLUT50SP17; -FLUTISP; -NS 1,000 ML IV ONE
== END ==
LOC: M RAD 07:06
PROVIDERS: ATTEND Physician Assistant
DX: Z87.442 Personal history of urinary calculi (principal)

== ENCOUNTER 2023-08-30 14:33 | Emergency (ER) | payer MEDICARE, BC, OTHER ==
[~2023-08-30] VITALS: Ht 170.2 cm; Wt 89.5 kg
[~2023-08-30 14:33] MED LIST changes: +CELE0.09 PO; -CELE1CAP9 PO; -FLUT50SP17; +FLUTISP
[2023-08-30 15:29] LABS: BASO % 0.2 % (0.0-1.0); EOS % 0.1 % (0.0-3.0); HEMATOCRIT 36.3 % (42.0-52.0); HEMOGLOBIN 12.5 g/dl (13.5-17.5); LYMPH # 0.4 10^3/uL (1.5-5.0); LYMPH % 3.4 % (24.0-44.0); MEAN CORPUSCULAR HGB CONC 34.4 g/dl (32.0-36.5); MEAN CORPUSCULAR VOLUME 90.1 fl (80.0-96.0); MONO # 0.4 10^3/uL (0.0-0.8); MONO % 3.9 % (2.0-8.0); NEUTROPHILS # 10.2 10^3/uL (1.5-8.5); PLATELET COUNT, AUTOMATED 244 10^3/uL (150-450); RED BLOOD COUNT 4.03 10^6/uL (4.30-6.10); WHITE BLOOD COUNT 11.1 10^3/uL (4.0-10.0)
[2023-08-30 15:51] LABS: LIPASE 37 U/L (12-53)
[2023-08-30 15:53] LABS: ALBUMIN 3.2 G/DL (3.2-5.2); ALKALINE PHOSPHATASE 616 U/L (46-116); ALT/SGPT 233 U/L (7.0-40); AST/SGOT 206 U/L (<34); BILIRUBIN,DIRECT 1.7 MG/DL (<0.4); BILIRUBIN,TOTAL 2.3 MG/DL (0.3-1.2); BLOOD UREA NITROGEN 22 MG/DL (9-23); CARBON DIOXIDE LEVEL 28 MMOL/L (20-31); CHLORIDE LEVEL 103 MMOL/L (98-107); CPK CREATINE PHOSPHOKINASE 57 U/L (46-171); CREATININE FOR GFR 0.74 MG/DL (0.70-1.30); GLOMERULAR FILTRATION RATE > 60.0 (>49); GLUCOSE, FASTING 157 MG/DL (74-106); POTASSIUM SERUM 3.6 MMOL/L (3.5-5.1); SODIUM LEVEL 135 MMOL/L (136-145)
[2023-08-30 15:54] LABS: CK-MB VALUE MASS < 1.0 NG/ML (<3.6); MB/CK RELATIVE INDEX 1.75 (< OR =4)
[2023-08-30] MEDS: NS 1,000 ML IV SCH (16:06)
[2023-08-30] MEDS ORDERED: ISOVUE-370 76% 100ML VIAL As Ordered ONE (17:37)
[2023-08-30 17:46] LABS: CK-MB VALUE MASS < 1.0 NG/ML (<3.6)
[2023-08-30 17:47] LABS: CPK CREATINE PHOSPHOKINASE 46 U/L (46-171); MB/CK RELATIVE INDEX 2.17 (< OR =4)
[2023-08-30] MEDS: ACETAMINOPHEN TAB 650MG DOSE (2X325MG) PO ONE (18:08)
[2023-08-30] MEDS: NS 1,000 ML IV ONE (19:38)
[2023-08-30] MEDS: PIPERACILLIN/TAZOBACTAM SOD 4.5 GM in D5W MINI-BAG PLUS 50 ML IV ONE (19:38)
[2023-08-30 20:24] VITALS: TEMP 99
[2023-08-30] MEDS: NS 1,690 ML in IV 1 EA IV ONE (20:40)
[2023-08-30 21:26] VITALS: BP 103/55; O2SAT 97
== END 2023-08-30 21:35 | disposition short-term general hospital (02) ==
LOC: M ED 15:54
DX: K81.9 Cholecystitis, unspecified (principal); A41.9 Sepsis, unspecified organism; E80.6 Other disorders of bilirubin metabolism; I10 Essential (primary) hypertension; E78.5 Hyperlipidemia, unspecified; G47.33 Obstructive sleep apnea (adult) (pediatric); N20.0 Calculus of kidney
CPT/HCPCS: 71275; 74177; 76705; 80048; 80076; 81001; 82550; 82553; 83605; 83690; 84484; 85025; 87040; 87486; 87581; 87633; 87798; 93005; 93041; 94760; 96361; 96365; 96366; 99291; J2543; Q9967

== ENCOUNTER 2023-09-20 02:03 | Inpatient (IN) | payer MEDICARE, BC ==
[~2023-09-20] VITALS: Ht 170.2 cm; Wt 92.0 kg
[2023-09-20 02:34] LABS: APPEARANCE, URINE CLEAR (CLEAR); BACTERIA, URINE AUTO NEGATIVE (NEGATIVE); BILIRUBIN, URINE AUTO NEGATIVE (NEGATIVE); BLOOD, URINE BLOOD NEGATIVE (NEGATIVE); COLOR, URINE YELLOW (YELLOW); GLUCOSE, URINE (UA) AUTO NEGATIVE (NEGATIVE); KETONE, URINE AUTO NEGATIVE (NEGATIVE); LEUKOCYTE ESTERASE, URINE AUTO NEGATIVE (NEGATIVE); MUCUS, URINE SMALL (NEGATIVE); NITRITE, URINE AUTO NEGATIVE (NEGATIVE); PROTEIN, URINE AUTO NEGATIVE (NEGATIVE); RBC, URINE AUTO 0 /HPF (0-3); SPECIFIC GRAVITY URINE AUTO 1.012 (1.002-1.035); SQUAMOUS EPITHELIAL CELL UR AU 0 /HPF (0-6); UROBILINOGEN, URINE AUTO 0.2 mg/dL (0.0-2.0); WBC, URINE AUTO 0 /HPF (0-3)
[2023-09-20 02:44] LABS: BASO # 0.1 10^3/uL (0.0-0.2); BASO % 0.5 % (0.0-1.0); EOS # 0.1 10^3/uL (0.0-0.5); HEMATOCRIT 38.7 % (42.0-52.0); HEMOGLOBIN 13.1 g/dl (13.5-17.5); LYMPH # 0.9 10^3/uL (1.5-5.0); LYMPH % 7.3 % (24.0-44.0); MEAN CORPUSCULAR HEMOGLOBIN 31.3 pg (27.0-33.0); MEAN CORPUSCULAR HGB CONC 33.9 g/dl (32.0-36.5); MEAN CORPUSCULAR VOLUME 92.6 fl (80.0-96.0); MONO # 0.5 10^3/uL (0.0-0.8); MONO % 3.9 % (2.0-8.0); NEUTROPHILS # 10.9 10^3/uL (1.5-8.5); NEUTROPHILS % 87.1 % (36.0-66.0); PLATELET COUNT, AUTOMATED 379 10^3/uL (150-450); RED BLOOD COUNT 4.18 10^6/uL (4.30-6.10); WHITE BLOOD COUNT 12.5 10^3/uL (4.0-10.0)
[2023-09-20 02:50] LABS: INR 1.2; PARTIAL THROMBOPLASTIN TIME 27.4 SECONDS (24.8-34.2); PROTHROMBIN TIME 14.8 SECONDS (12.5-14.5)
[2023-09-20 03:02] LABS: AMYLASE 66 U/L (30-118)
[2023-09-20 03:03] LABS: ALBUMIN 3.6 G/DL (3.2-5.2); ALKALINE PHOSPHATASE 649 U/L (46-116); ALT/SGPT 81 U/L (7.0-40); AST/SGOT 57 U/L (<34); BILIRUBIN,DIRECT 0.9 MG/DL (<0.4); BILIRUBIN,TOTAL 1.3 MG/DL (0.3-1.2); BLOOD UREA NITROGEN 18 MG/DL (9-23); CALCIUM LEVEL 10.3 MG/DL (8.3-10.6); CARBON DIOXIDE LEVEL 27 MMOL/L (20-31); CHLORIDE LEVEL 100 MMOL/L (98-107); CREATININE FOR GFR 0.66 MG/DL (0.70-1.30); GLOMERULAR FILTRATION RATE > 60.0 (>49); GLUCOSE, FASTING 124 MG/DL (74-106); POTASSIUM SERUM 4.1 MMOL/L (3.5-5.1); SODIUM LEVEL 136 MMOL/L (136-145); TOTAL PROTEIN 7.4 G/DL (5.7-8.2)
[2023-09-20] MEDS ORDERED: ISOVUE-370 76% 100ML VIAL As Ordered ONE (03:32)
[2023-09-20 03:36] LABS: PROCALCITONIN 0.08 ng/ml
[2023-09-20] MEDS: PIPERACILLIN/TAZOBACTAM SOD 4.5 GM in D5W MINI-BAG PLUS 50 ML IV ONE (03:56)
[2023-09-20] MEDS: NS 2,560 ML in IV 1 EA IV ONE (03:56)
[2023-09-20] MEDS: KETOROLAC 30 MG/ML 1ML VIAL IV ONE (05:22)
[2023-09-20] MEDS ORDERED: ACETAMINOPHEN TAB 650MG DOSE (2X325MG) PO PRN (05:55)
[2023-09-20] MEDS ORDERED: CALC600T57 PO (06:50)
[2023-09-20] MEDS ORDERED: CHOL125C6 PO (06:50)
[2023-09-20] MEDS ORDERED: OMEP40CA4 PO (06:56)
[2023-09-20] MEDS ORDERED: OLOP2.5D3 OU (06:56)
[2023-09-20] MEDS ORDERED: REFR0.5D8 OU (06:56)
[2023-09-20] MEDS ORDERED: TRIA1OI TOP (06:56)
[2023-09-20] MEDS ORDERED: B-12100010 PO (06:56)
[2023-09-20] MEDS ORDERED: CENT1TAB PO (06:56)
[2023-09-20] MEDS ORDERED: HOME MED LIST COMPLETE! XX SCH (07:00)
[2023-09-20] MEDS: NS 1,000 ML IV SCH (07:08)
[2023-09-20 07:38] LABS: HEMOGLOBIN 11.9 g/dl (13.5-17.5); MEAN CORPUSCULAR HEMOGLOBIN 31.4 pg (27.0-33.0); MEAN CORPUSCULAR VOLUME 92.3 fl (80.0-96.0); PLATELET COUNT, AUTOMATED 335 10^3/uL (150-450); RED BLOOD COUNT 3.79 10^6/uL (4.30-6.10); WHITE BLOOD COUNT 17.6 10^3/uL (4.0-10.0)
[2023-09-20 08:02] LABS: ALBUMIN 2.9 G/DL (3.2-5.2); ALKALINE PHOSPHATASE 528 U/L (46-116); ALT/SGPT 65 U/L (7.0-40); AST/SGOT 48 U/L (<34); BILIRUBIN,TOTAL 1.1 MG/DL (0.3-1.2); BLOOD UREA NITROGEN 16 MG/DL (9-23); CALCIUM LEVEL 9.3 MG/DL (8.3-10.6); CARBON DIOXIDE LEVEL 24 MMOL/L (20-31); CHLORIDE LEVEL 103 MMOL/L (98-107); CREATININE FOR GFR 0.67 MG/DL (0.70-1.30); GLOMERULAR FILTRATION RATE > 60.0 (>49); GLUCOSE, FASTING 119 MG/DL (74-106); SODIUM LEVEL 135 MMOL/L (136-145); TOTAL PROTEIN 6.3 G/DL (5.7-8.2)
[2023-09-20] MEDS: ENOXAPARIN 40MG/0.4ML SYRINGE (J1650 PER 10MG) SC SCH (08:18)
[2023-09-20] MEDS: hydroCHLOROthiazide 12.5 MG CAPSULE PO SCH (08:18)
[2023-09-20] MEDS: CYANOCOBALAMIN 500 MCG TAB PO SCH (08:19)
[2023-09-20] MEDS: ASPIRIN 81MG ENTERIC TABLET PO SCH (08:19)
[2023-09-20] MEDS: OMEPRAZOLE 20MG CAP PO SCH ×2 (08:19→20:16)
[2023-09-20] MEDS: oxyBUTYnin *DITROPAN XL* 5 MG TABCR PO SCH (08:25)
[2023-09-20 08:45] VITALS: BP 94/52; TEMP 97.7; O2SAT 100
[2023-09-20] MEDS: PIPERACILLIN/TAZOBACTAM SOD 4.5 GM in D5W MINI-BAG PLUS 50 ML IV SCH (09:50)
[2023-09-20] MEDS: FLUTICASONE PROP 0.05% NASAL SPRAY 16 GM (FLONASE) SCH (11:23)
[2023-09-20 12:45] VITALS: BP 103/55; TEMP 98.2; O2SAT 98
[2023-09-20 16:45] VITALS: BP 110/56; TEMP 99.5; O2SAT 98
[2023-09-20] MEDS: ATORVASTATIN 10 MG TAB PO SCH (20:15)
[2023-09-20 21:55] VITALS: BP 104/52; TEMP 98.6; O2SAT 96
[2023-09-20 23:12] VITALS: BP 111/62; TEMP 98.3; O2SAT 98
[2023-09-21 06:16] VITALS: BP 103/49; TEMP 98.6; O2SAT 97
[2023-09-21 06:38] LABS: HEMOGLOBIN 10.2 g/dl (13.5-17.5); MEAN CORPUSCULAR HEMOGLOBIN 30.7 pg (27.0-33.0); MEAN CORPUSCULAR HGB CONC 32.9 g/dl (32.0-36.5); MEAN CORPUSCULAR VOLUME 93.4 fl (80.0-96.0); PLATELET COUNT, AUTOMATED 265 10^3/uL (150-450); RED BLOOD COUNT 3.32 10^6/uL (4.30-6.10); WHITE BLOOD COUNT 15.9 10^3/uL (4.0-10.0)
[2023-09-21 07:11] LABS: ALBUMIN 2.7 G/DL (3.2-5.2); ALKALINE PHOSPHATASE 402 U/L (46-116); ALT/SGPT 50 U/L (7.0-40); AST/SGOT 23 U/L (<34); BILIRUBIN,TOTAL 1.1 MG/DL (0.3-1.2); BLOOD UREA NITROGEN 10 MG/DL (9-23); CALCIUM LEVEL 9.7 MG/DL (8.3-10.6); CARBON DIOXIDE LEVEL 27 MMOL/L (20-31); CHLORIDE LEVEL 102 MMOL/L (98-107); CREATININE FOR GFR 0.78 MG/DL (0.70-1.30); GLOMERULAR FILTRATION RATE > 60.0 (>49); GLUCOSE, FASTING 105 MG/DL (74-106); POTASSIUM SERUM 3.9 MMOL/L (3.5-5.1); SODIUM LEVEL 135 MMOL/L (136-145); TOTAL PROTEIN 5.6 G/DL (5.7-8.2)
[2023-09-21 08:00] VITALS: BP 108/56; TEMP 98.6; O2SAT 95
[2023-09-21] MEDS ORDERED: OMEP40CA4 PO (10:58)
[2023-09-21] MEDS ORDERED: AUGM500T34 PO (10:58)
== END 2023-09-21 12:55 | disposition home or self-care (01) | DRG 871 ==
LOC: M ED 02:03 → M ED INP 05:51 → ENRESERV 08:00 → M MS5PR 08:45
PROVIDERS: ADMIT Internal Medicine; ATTEND Student in an Organized Health Care Education/Training Program
DX: A41.9 Sepsis, unspecified organism (principal); J69.0 Pneumonitis due to inhalation of food and vomit; R65.20 Severe sepsis without septic shock; I10 Essential (primary) hypertension; R11.10 Vomiting, unspecified; K21.9 Gastro-esophageal reflux disease without esophagitis; N40.1 Benign prostatic hyperplasia with lower urinary tract symptoms; R39.9 Unspecified symptoms and signs involving the genitourinary system; R68.81 Early satiety; Z90.49 Acquired absence of other specified parts of digestive tract; Z98.84 Bariatric surgery status; Z87.442 Personal history of urinary calculi; Z79.82 Long term (current) use of aspirin; Z79.899 Other long term (current) drug therapy

== ENCOUNTER → 2023-11-15 | Outpatient (CLI) | payer MEDICARE, BC ==
[~2023-11-15] MED LIST changes: +AUGM500T34 PO; +B-12100010 PO; +CALC600T57 PO; +CENT1TAB PO; +CHOL125C6 PO; +OLOP2.5D3 OU; +OMEP40CA4 PO; +REFR0.5D8 OU; +TRIA1OI TOP
== END ==
LOC: M ADAMS 09:37
PROVIDERS: ATTEND Physician Assistant
DX: Z87.442 Personal history of urinary calculi (principal)

== ENCOUNTER → 2024-01-10 | Outpatient (REF) | payer MEDICARE, OTHER, BC ==
[2024-01-10 14:43] LABS: BASO # 0.1 10^3/uL (0.0-0.2); BASO % 0.5 % (0.0-1.0); EOS # 0.1 10^3/uL (0.0-0.5); EOS % 1.3 % (0.0-3.0); HEMOGLOBIN 12.8 g/dl (13.5-17.5); LYMPH # 1.6 10^3/uL (1.5-5.0); LYMPH % 16.5 % (24.0-44.0); MEAN CORPUSCULAR HEMOGLOBIN 30.5 pg (27.0-33.0); MEAN CORPUSCULAR HGB CONC 33.7 g/dl (32.0-36.5); MEAN CORPUSCULAR VOLUME 90.5 fl (80.0-96.0); MONO # 1.2 10^3/uL (0.0-0.8); NEUTROPHILS # 6.7 10^3/uL (1.5-8.5); NEUTROPHILS % 69.5 % (36.0-66.0); PLATELET COUNT, AUTOMATED 336 10^3/uL (150-450); WHITE BLOOD COUNT 9.7 10^3/uL (4.0-10.0)
[2024-01-10 14:49] LABS: LDH LACTATE DEHYDROGENASE 117 U/L (120-246)
[2024-01-10 14:50] LABS: ALBUMIN 3.7 G/DL (3.2-5.2); ALKALINE PHOSPHATASE 189 U/L (46-116); ALT/SGPT 22 U/L (7.0-40); AST/SGOT 20 U/L (<34); BILIRUBIN,DIRECT 0.2 MG/DL (<0.4); BILIRUBIN,TOTAL 0.4 MG/DL (0.3-1.2); BLOOD UREA NITROGEN 19 MG/DL (9-23); CALCIUM LEVEL 10.1 MG/DL (8.3-10.6); CARBON DIOXIDE LEVEL 31 MMOL/L (20-31); CHLORIDE LEVEL 102 MMOL/L (98-107); CREATININE FOR GFR 0.71 MG/DL (0.70-1.30); GLOMERULAR FILTRATION RATE > 60.0 (>49); GLUCOSE, FASTING 93 MG/DL (74-106); IRON (FE) 71 UG/DL (65-175); PERCENT SATURATION 23.7 % (19.7-50.0); POTASSIUM SERUM 4.6 MMOL/L (3.5-5.1); SODIUM LEVEL 135 MMOL/L (136-145); TOTAL IRON BINDING CAPACITY 300 UG/DL (250-425); TOTAL PROTEIN 6.7 G/DL (5.7-8.2)
[2024-01-10 14:53] LABS: FERRITIN 149.7 NG/ML (10.5-307.3); THYROID STIMULATING HORMONE 0.943 uIU/ML (0.55-4.78)
[2024-01-10 14:54] LABS: TOTAL 25(OH) VITAMIN D 52.7 NG/ML (20.0-100.0); VITAMIN B12 LEVEL 511 PG/ML (211-911)
== END ==
LOC: M LABDRWAD 13:20
PROVIDERS: ATTEND Registered Nurse
DX: Z98.84 Bariatric surgery status (principal); I10 Essential (primary) hypertension; E78.5 Hyperlipidemia, unspecified; K91.2 Postsurgical malabsorption, not elsewhere classified

== ENCOUNTER → 2024-03-08 | Outpatient (REF) | payer MEDICARE, OTHER, BC ==
[2024-03-08 13:53] LABS: ALBUMIN 3.4 G/DL (3.2-5.2); ALKALINE PHOSPHATASE 136 U/L (46-116); ALT/SGPT 16 U/L (7.0-40); AST/SGOT 12 U/L (<34); BASO # 0.1 10^3/uL (0.0-0.2); BASO % 0.7 % (0.0-1.0); BILIRUBIN,TOTAL 0.3 MG/DL (0.3-1.2); BLOOD UREA NITROGEN 20 MG/DL (9-23); CALCIUM LEVEL 10.4 MG/DL (8.3-10.6); CARBON DIOXIDE LEVEL 29 MMOL/L (20-31); CHLORIDE LEVEL 104 MMOL/L (98-107); CREATININE FOR GFR 0.79 MG/DL (0.70-1.30); EOS # 0.2 10^3/uL (0.0-0.5); EOS % 1.7 % (0.0-3.0); GLOMERULAR FILTRATION RATE > 60.0 (>49); GLUCOSE, FASTING 96 MG/DL (74-106); HEMATOCRIT 38.1 % (42.0-52.0); HEMOGLOBIN 12.4 g/dl (13.5-17.5); LYMPH # 1.5 10^3/uL (1.5-5.0); LYMPH % 16.8 % (24.0-44.0); MEAN CORPUSCULAR HEMOGLOBIN 30.5 pg (27.0-33.0); MEAN CORPUSCULAR HGB CONC 32.5 g/dl (32.0-36.5); MEAN CORPUSCULAR VOLUME 93.6 fl (80.0-96.0); MONO # 1.1 10^3/uL (0.0-0.8); MONO % 11.7 % (2.0-8.0); NEUTROPHILS # 6.2 10^3/uL (1.5-8.5); NEUTROPHILS % 68.8 % (36.0-66.0); PLATELET COUNT, AUTOMATED 310 10^3/uL (150-450); POTASSIUM SERUM 4.6 MMOL/L (3.5-5.1); RED BLOOD COUNT 4.07 10^6/uL (4.30-6.10); SODIUM LEVEL 139 MMOL/L (136-145); TOTAL PROTEIN 6.6 G/DL (5.7-8.2)
== END ==
LOC: M LABDRWAD 13:06
PROVIDERS: ATTEND Nurse Practitioner Family
DX: I10 Essential (primary) hypertension (principal)

== ENCOUNTER 2024-05-27 08:38 | Observation (INO) | payer MEDICARE, OTHER, BC ==
[~2024-05-27] VITALS: Ht 170.2 cm; Wt 85.0 kg
[2024-05-27 11:16] LABS: BASO # 0.1 10^3/uL (0.0-0.2); BASO % 0.3 % (0.0-1.0); EOS % 0.2 % (0.0-3.0); HEMATOCRIT 36.2 % (42.0-52.0); HEMOGLOBIN 12.1 g/dl (13.5-17.5); LYMPH # 1.3 10^3/uL (1.5-5.0); LYMPH % 7.2 % (24.0-44.0); MEAN CORPUSCULAR HEMOGLOBIN 30.7 pg (27.0-33.0); MEAN CORPUSCULAR HGB CONC 33.4 g/dl (32.0-36.5); MEAN CORPUSCULAR VOLUME 91.9 fl (80.0-96.0); MONO # 1.4 10^3/uL (0.0-0.8); MONO % 7.5 % (2.0-8.0); NEUTROPHILS # 15.6 10^3/uL (1.5-8.5); NEUTROPHILS % 84.4 % (36.0-66.0); PLATELET COUNT, AUTOMATED 311 10^3/uL (150-450); RED BLOOD COUNT 3.94 10^6/uL (4.30-6.10); WHITE BLOOD COUNT 18.5 10^3/uL (4.0-10.0)
[2024-05-27 11:37] LABS: BLOOD UREA NITROGEN 19 MG/DL (9-23); CALCIUM LEVEL 9.7 MG/DL (8.3-10.6); CARBON DIOXIDE LEVEL 28 MMOL/L (20-31); CHLORIDE LEVEL 104 MMOL/L (98-107); CREATININE FOR GFR 0.76 MG/DL (0.70-1.30); GLOMERULAR FILTRATION RATE > 60.0 (>42); GLUCOSE, FASTING 98 MG/DL (74-106); POTASSIUM SERUM 4.2 MMOL/L (3.5-5.1); SODIUM LEVEL 140 MMOL/L (136-145)
[2024-05-27 11:45] LABS: PROCALCITONIN 0.06 ng/ml
[2024-05-27] MEDS: PIPERACILLIN/TAZOBACTAM SOD 4.5 GM in DEXTROSE 5% (D5W) ADV/MINI-BAG 50 ML IV ONE (12:45)
[2024-05-27] MEDS ORDERED: MOM 30ML SUSPENSION UDC PO PRN (14:15)
[2024-05-27 15:37] VITALS: BP 112/67; TEMP 98.4; O2SAT 88
[2024-05-27] MEDS: SUCRALFATE 1 GM TAB PO SCH (17:13)
[2024-05-27] MEDS: AMPICILLIN SOD/SULBACTAM SOD 1.5 GM in DEXTROSE 5% (D5W) ADV/MINI-BAG 50 ML IV SCH (18:30)
[2024-05-27] MEDS ORDERED: OMEP40CA4 PO (18:39)
[2024-05-27] MEDS ORDERED: OXYB-54 PO (18:39)
[2024-05-27] MEDS ORDERED: AMOX500T PO (18:39)
[2024-05-27] MEDS ORDERED: LISI5TAB11 PO (18:39)
[2024-05-27] MEDS ORDERED: HOME MED LIST COMPLETE! XX SCH (18:40)
[2024-05-27 18:54] LABS: BASO # 0.1 10^3/uL (0.0-0.2); BASO % 0.3 % (0.0-1.0); EOS # 0.1 10^3/uL (0.0-0.5); EOS % 0.7 % (0.0-3.0); HEMATOCRIT 34.5 % (42.0-52.0); HEMOGLOBIN 11.7 g/dl (13.5-17.5); LYMPH # 1.4 10^3/uL (1.5-5.0); LYMPH % 7.6 % (24.0-44.0); MEAN CORPUSCULAR HEMOGLOBIN 31.1 pg (27.0-33.0); MEAN CORPUSCULAR HGB CONC 33.9 g/dl (32.0-36.5); MEAN CORPUSCULAR VOLUME 91.8 fl (80.0-96.0); MONO # 1.4 10^3/uL (0.0-0.8); MONO % 7.5 % (2.0-8.0); NEUTROPHILS # 15.6 10^3/uL (1.5-8.5); NEUTROPHILS % 83.5 % (36.0-66.0); PLATELET COUNT, AUTOMATED 291 10^3/uL (150-450); RED BLOOD COUNT 3.76 10^6/uL (4.30-6.10); WHITE BLOOD COUNT 18.7 10^3/uL (4.0-10.0)
[2024-05-27 19:28] LABS: BLOOD UREA NITROGEN 17 MG/DL (9-23); CALCIUM LEVEL 9.9 MG/DL (8.3-10.6); CARBON DIOXIDE LEVEL 26 MMOL/L (20-31); CHLORIDE LEVEL 104 MMOL/L (98-107); CREATININE FOR GFR 0.76 MG/DL (0.70-1.30); GLOMERULAR FILTRATION RATE > 60.0 (>42); GLUCOSE, FASTING 109 MG/DL (74-106); MAGNESIUM LEVEL 1.9 MG/DL (1.8-2.4); SODIUM LEVEL 137 MMOL/L (136-145)
[2024-05-27 19:50] VITALS: BP 110/52; TEMP 98.2; O2SAT 94
[2024-05-27] MEDS: DOCUSATE SODIUM 100MG CAPSULE PO SCH (20:03)
[2024-05-27] MEDS: PANTOPRAZOLE 40MG TAB (PROTONIX) PO SCH (20:03)
[2024-05-28 03:50] VITALS: BP 112/55; TEMP 98.1; O2SAT 96
[2024-05-28] MEDS: ACETAMINOPHEN 325 MG TAB PO PRN (07:26)
[2024-05-28] MEDS ORDERED: ENOXAPARIN 40MG/0.4ML SYRINGE (J1650 PER 10MG) SC SCH (09:00)
[2024-05-28] MEDS ORDERED: SUCR1TA PO (09:36)
[2024-05-28] MEDS ORDERED: AMOX875T2 PO (09:36)
[2024-05-28] MEDS ORDERED: PANT40TA29 PO (09:36)
[2024-05-28] MEDS ORDERED: AMPICILLIN SOD/SULBACTAM SOD 3 GM in SODIUM CHLORIDE 0.9% 100ML ADD 100 ML IV SCH (13:00)
== END 2024-05-28 11:32 | disposition home or self-care (01) ==
LOC: M ED 08:38 → M ED INP 13:53 → M MSPAV 15:37
PROVIDERS: ADMIT Student in an Organized Health Care Education/Training Program; ATTEND Student in an Organized Health Care Education/Training Program
DX: J69.0 Pneumonitis due to inhalation of food and vomit (principal); I10 Essential (primary) hypertension; K21.9 Gastro-esophageal reflux disease without esophagitis; E78.5 Hyperlipidemia, unspecified; N40.1 Benign prostatic hyperplasia with lower urinary tract symptoms; Z98.84 Bariatric surgery status; Z90.49 Acquired absence of other specified parts of digestive tract; G47.33 Obstructive sleep apnea (adult) (pediatric); Z96.652 Presence of left artificial knee joint; Z79.82 Long term (current) use of aspirin; Z79.899 Other long term (current) drug therapy
CPT/HCPCS: 36415; 71046; 71250; 80048; 83605; 83735; 84145; 85025; 87040; 87486; 87581; 87633; 87641; 87798; 93005; 93041; 94760; 96365; 99285; G0378; J0295; J2543

== ENCOUNTER → 2024-06-19 | Outpatient (CLI) | payer MEDICARE, OTHER, BC ==
[~2024-06-19] MED LIST changes: +AMOX500T PO; +AMOX875T2 PO; +LISI5TAB11 PO; +OXYB-54 PO; +PANT40TA29 PO; +SUCR1TA PO
== END ==
LOC: M ADAMS 09:35
PROVIDERS: ATTEND Nurse Practitioner Family
DX: J15.9 Unspecified bacterial pneumonia (principal)

== ENCOUNTER → 2024-07-07 | Outpatient (CLI) | payer MEDICARE, BC ==
[~2024-07-07] MED LIST changes: +E-Z-GAS II EFFERVESCENT PACKET (SODIUM BICARB./CITRIC ACID/SIMETHICONE) As Ordered ONE; +E-Z-HD 98% w/w 340GM SUSP BTL As Ordered ONE; +E-Z-PAQUE 96% w/w SUSP 176GM BTL As Ordered ONE
== END ==
LOC: M RAD 08:08
PROVIDERS: ATTEND Surgery
DX: K21.9 Gastro-esophageal reflux disease without esophagitis (principal)

== ENCOUNTER → 2024-09-12 | Outpatient (REF) | payer MEDICARE, OTHER ==
[~2024-09-12] MED LIST changes: -E-Z-GAS II EFFERVESCENT PACKET (SODIUM BICARB./CITRIC ACID/SIMETHICONE) As Ordered ONE; -E-Z-HD 98% w/w 340GM SUSP BTL As Ordered ONE; -E-Z-PAQUE 96% w/w SUSP 176GM BTL As Ordered ONE; -FLOM0.4C39 PO; +TAMS-18 PO
[2024-09-12 13:37] LABS: BASO # 0.1 10^3/uL (0.0-0.2); BASO % 0.7 % (0.0-1.0); EOS # 0.1 10^3/uL (0.0-0.5); EOS % 1.1 % (0.0-3.0); HEMATOCRIT 39.9 % (42.0-52.0); HEMOGLOBIN 13.4 g/dl (13.5-17.5); LYMPH # 1.4 10^3/uL (1.5-5.0); MEAN CORPUSCULAR HEMOGLOBIN 31.3 pg (27.0-33.0); MEAN CORPUSCULAR HGB CONC 33.6 g/dl (32.0-36.5); MEAN CORPUSCULAR VOLUME 93.2 fl (80.0-96.0); MONO # 0.6 10^3/uL (0.0-0.8); MONO % 8.3 % (2.0-8.0); NEUTROPHILS # 5.2 10^3/uL (1.5-8.5); NEUTROPHILS % 70.8 % (36.0-66.0); PLATELET COUNT, AUTOMATED 258 10^3/uL (150-450); RED BLOOD COUNT 4.28 10^6/uL (4.30-6.10); WHITE BLOOD COUNT 7.3 10^3/uL (4.0-10.0)
[2024-09-12 13:41] LABS: ALBUMIN 4.3 G/DL (3.2-5.2); ALKALINE PHOSPHATASE 118 U/L (40-129); ALT/SGPT 18 U/L (7.0-40); AST/SGOT 20 U/L (<34); BILIRUBIN,TOTAL 0.6 MG/DL (0.3-1.2); BLOOD UREA NITROGEN 15 MG/DL (9-23); CARBON DIOXIDE LEVEL 30 MMOL/L (20-31); CHLORIDE LEVEL 101 MMOL/L (98-107); CHOLESTEROL LEVEL 112 MG/DL (<200); CHOLESTEROL RISK RATIO 2.38 (<5); CREATININE FOR GFR 0.76 MG/DL (0.70-1.30); GLOMERULAR FILTRATION RATE > 90.0 (>42); GLUCOSE, FASTING 103 MG/DL (74-106); LDL CHOLESTEROL 54.8 MG/DL (<100); POTASSIUM SERUM 4.3 MMOL/L (3.5-5.1); PROSTATIC SPECIFIC AG MONITOR 0.36 NG/ML (< 4.00); SODIUM LEVEL 138 MMOL/L (136-145); TOTAL PROTEIN 6.9 G/DL (5.7-8.2); TRIGLYCERIDES LEVEL 51 MG/DL (<150)
[2024-09-12 14:05] LABS: HEMOGLOBIN A1c 5.2 % (4.0-6.0)
[2024-09-12 14:09] LABS: CREATININE, URINE 104.2 MG/DL; MALB URINE SIEMENS < 3.0 MG/L
== END ==
LOC: M LABDRWAD 12:56
PROVIDERS: ATTEND Nurse Practitioner Family
DX: I10 Essential (primary) hypertension (principal); E78.2 Mixed hyperlipidemia; R73.03 Prediabetes; N40.1 Benign prostatic hyperplasia with lower urinary tract symptoms

== ENCOUNTER → 2025-04-23 | Outpatient (REF) | payer MEDICARE, BC ==
[~2025-04-23] MED LIST changes: +HYDR12.510 PO; -HYDR12CA PO
[2025-04-23 19:08] LABS: BASO # 0.0 10^3/uL (0.0-0.2); BASO % 0.2 % (0.0-1.0); EOS # 0.1 10^3/uL (0.0-0.5); EOS % 0.7 % (0.0-3.0); LYMPH # 1.5 10^3/uL (1.5-5.0); LYMPH % 11.6 % (24.0-44.0); MONO # 1.4 10^3/uL (0.0-0.8); MONO % 11.4 % (2.0-8.0); NEUTROPHILS # 9.6 10^3/uL (1.5-8.5); NEUTROPHILS % 75.8 % (36.0-66.0); PLATELET COUNT, AUTOMATED 278 10^3/uL (150-450)
[2025-04-23 19:09] LABS: CALCIUM LEVEL 10.3 MG/DL (8.3-10.6); CARBON DIOXIDE LEVEL 25.0 MMOL/L (20-31); CHLORIDE LEVEL 105.0 MMOL/L (98-107); CREATININE FOR GFR 1.12 MG/DL (0.70-1.30); GLOMERULAR FILTRATION RATE 70.2 (>42); MAGNESIUM LEVEL 1.6 MG/DL (1.8-2.4); POTASSIUM SERUM 4.6 MMOL/L (3.5-5.1); SODIUM LEVEL 138.0 MMOL/L (136-145)
== END ==
LOC: M LAB REF 18:07
PROVIDERS: ATTEND Nurse Practitioner Family
DX: R19.7 Diarrhea, unspecified (principal); A08.11 Acute gastroenteropathy due to Norwalk agent